=== PATIENT | male | born 1960 | race Caucasian/White ===

== ENCOUNTER 2016-12-23 13:58 | Emergency (ER) | payer MEDICAID ==
[~2016-12-23] VITALS: Ht 165.1 cm; Wt 93.4 kg
[~2016-12-23 13:58] MED LIST: ASPIRIN325 M3 PO; BENAZEPRIL20 M1 PO; GLUCOPHAGE850 MG PO; LANTUS INS100 UNITS/ SUBQ; ORETIC25 MG PO; ZOCOR20 MG PO
[2016-12-23 14:40] VITALS: BP 135/80
--- NOTE | 2016-12-23 15:21 | NUR ---
Patient ambulated to bed 06.
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
--- NOTE | 2016-12-23 15:41 | NUR ---
Dr. Luis evaluating patient at bedside.
--- NOTE | 2016-12-23 16:15 | NUR ---
PT TAKEN TO CT VIA W/C ACCOMPANIED BY ROBOTICS TECHNICIAN.
[2016-12-23] MEDS ORDERED: ASPIRIN 325 MG TAB PO ONE (16:55)
--- NOTE | 2016-12-23 17:24 | NUR ---
PT REFUSED O2; O2 SAT 96 % ON ROOM AIR AT THIS TIME; RR EVEN/UNLABORED; DENIES SOB. WILL CONTINUE TO MONITOR.
--- NOTE | 2016-12-23 17:42 | NUR ---
PT AMBULATED TO RESTROOM AT THIS TIME.
--- NOTE | 2016-12-23 18:13 | NUR ---
REPORT GIVEN TO MARTÍNEZ LOPEZ AT [facility] AT THIS TIME.
[2016-12-23 18:18] VITALS: BP 157/69
--- NOTE | 2016-12-23 18:18 | NUR ---
Patient to be transferred to [facility]. Is being transferred due to HIGHER LEVEL OF CARE. Receiving facility has accepting physician and available space. ER physician has signed transfer form. Patient or responsible alliance party has agreed to transfer and signed form. Patient belongings inventoried and will be sent with patient. Copy of nursing notes, lab reports, EKG, Physicians Orders and X-rays to be sent with patient. Report called to JOHN LINDSAY at receiving facility. [facility] ambulance service has been called for transfer. PT BEING TRANSFERRED VIA GURNEY TO [facility] ACCOMPANIED BY [facility] AT THIS TIME.
== END 2016-12-23 18:18 | disposition short-term general hospital (02) ==
LOC: MED 13:58
DX: G45.9 Transient cerebral ischemic attack, unspecified (principal); R27.0 Ataxia, unspecified; E11.9 Type 2 diabetes mellitus without complications; I10 Essential (primary) hypertension; Z86.73 Personal history of transient ischemic attack (TIA), and cerebral infarction without residual deficits; Z79.4 Long term (current) use of insulin
CPT/HCPCS: 36415; 70450; 71010; 80053; 82948; 84484; 85025; 85610; 85730; 86886; 86900; 86901; 93005; 99285; Q0092